=== PATIENT | male | born 1995 | race African-American/Black ===

== ENCOUNTER 2023-01-14 22:14 | Emergency (ER) | payer BC ==
[2023-01-14] MEDS ORDERED: traMADol 50 MG Tab PO ONE (22:52)
[2023-01-14] MEDS ORDERED: Cyclobenzaprine 10 MG Tab PO ONE (22:52)
[2023-01-14] MEDS ORDERED: Ketorolac 30 MG/ML SDV IM ONE (22:52)
== END 2023-01-14 23:04 | disposition home or self-care (01) ==
LOC: MW.ED 22:14
DX: M54.50 Low back pain, unspecified (principal)
CPT/HCPCS: 96372; 99283; A9270; J1885

== ENCOUNTER 2023-01-15 10:51 | Emergency (ER) | payer BC ==
[2023-01-15] MEDS ORDERED: traMADol 50 MG Tab PO STA (11:15)
== END 2023-01-15 11:24 | disposition home or self-care (01) ==
LOC: MW.ED 10:51
DX: M54.50 Low back pain, unspecified (principal)
CPT/HCPCS: 99282; 99283

== ENCOUNTER 2024-07-09 18:05 | Emergency (ER) | payer BC, OTHER ==
[2024-07-09] MEDS: Ketorolac 30 MG/ML SDV IM ONE (18:54)
[2024-07-09] MEDS: Acetaminophen 500 MG Tab PO ONE (18:56)
[2024-07-09] MEDS: Dexamethasone 4 MG Tab PO ONE (18:56)
== END 2024-07-09 19:31 | disposition home or self-care (01) ==
LOC: MW.ED 18:05
DX: S46.911A Strain of unspecified muscle, fascia and tendon at shoulder and upper arm level, right arm, initial encounter (principal); R07.9 Chest pain, unspecified; Z79.899 Other long term (current) drug therapy; V80.010A Animal-rider injured by fall from or being thrown from horse in noncollision accident, initial encounter; Y93.89 Activity, other specified
CPT/HCPCS: 71045; 73030; 96372; 99283; A9270; J1885; J8540